=== PATIENT | female | born 1930 | race Caucasian/White ===

== ENCOUNTER 2016-09-27 19:30 | Emergency (ER) | payer MEDICARE, OTHER ==
[~2016-09-27] VITALS: Wt 77.1 kg
[~2016-09-27 19:30] MED LIST: AMLODIPINE5 MG PO; BENAZEPRIL40 MG PO; GLUCOTROL5 MG PO; OMEPRAZOLE20 M2 PO; SIMVASTATIN40 MG PO; SYNTHROID,LEV100 MCG PO; TRIAMTERENE & H1 CA1 PO; [UNRECOGNIZED DRUG - OTHER]
[2016-09-27] MEDS ORDERED: DILTIAZEM HCL180 MG PO (20:07)
[2016-09-27] MEDS ORDERED: PRAVASTATIN SOD40 MG PO (20:07)
[2016-09-27] MEDS ORDERED: XARELTO20 M1 PO (20:07)
[2016-09-27] MEDS ORDERED: HCTZ/TRIAMTEREN1 TA3 PO (20:08)
[2016-09-27] MEDS ORDERED: LEVOTHYROXIN0.125 M1 PO (20:08)
[2016-09-27] MEDS ORDERED: GLIPIZIDE XL5 M1 PO (20:08)
[2016-09-27] MEDS ORDERED: BENAZEPRIL HYDR40 MG PO (20:09)
[2016-09-27 20:13] LABS: BASO % 0.3 % (0.0-1.0); EOS % 0.2 % (1.0-4.0); HEMATOCRIT 35.4 % (37.0-47.0); HEMOGLOBIN 11.9 g/dl (12.0-16.0); LYMPH # 1.9 10*3/uL (1.3-4.4); LYMPH % 18.9 % (27.0-41.0); MEAN CELL VOLUME 81.8 fl (81.0-99.0); MEAN CORPUSCULAR HGB 27.5 pg (27.0-31.0); MEAN CORPUSCULAR HGB CONC 33.6 g/dl (33.0-37.0); MEAN PLATELET VOLUME 10.2 fl (9.6-12.3); MONO # 1.1 10*3/uL (0.1-1.0); MONO % 11.3 % (3.0-9.0); NEUT # 6.8 10*3/uL (2.3-7.9); NEUT % 68.9 % (47.0-73.0); PLATELET COUNT AUTOMATED 302 10*3/uL (130-400); RED BLOOD COUNT 4.33 10*6/uL (4.10-5.10); WHITE BLOOD COUNT 9.8 10*3/uL (4.8-10.8)
[2016-09-27 20:28] LABS: BILIRUBIN, TOTAL 0.8 mg/dl (0.2-1.0); POTASSIUM 4.3 mmol/L (3.5-5.1); TOTAL PROTEIN 7.6 gm/dL (6.4-8.2); URIC ACID 8.6 mg/dL (2.6-6.0)
[2016-09-27] MEDS ORDERED: HYDROCODONE BIT1 T11 PO (20:45)
[2016-09-27] MEDS ORDERED: PREDNISONE10 MG PO (20:45)
== END 2016-09-27 20:47 | disposition home or self-care (01) ==
LOC: ED 19:30
PROVIDERS: Registered Nurse
DX: M10.9 Gout, unspecified (principal); Z88.1 Allergy status to other antibiotic agents; Z88.8 Allergy status to other drugs, medicaments and biological substances; Z79.899 Other long term (current) drug therapy